=== PATIENT | female | born 1990 | race Caucasian/White ===

== ENCOUNTER 2022-09-30 19:00 | Observation (INO) | payer OTHER ==
[2022-09-30] MEDS ORDERED: Metoclopramide HCl 10 MG/2 ML VIAL ONE (20:11)
[2022-09-30] MEDS ORDERED: diphenhydrAMINE 50 MG/ML VIAL ONE (20:11)
[2022-09-30] MEDS ORDERED: Magnesium 2 GM/50 ML BAG (IN WATER) ONE (20:48)
[2022-09-30] MEDS ORDERED: methylPREDNISolone Sod Succ/PF 125 MG/2 ML VIAL ONE (20:48)
[2022-09-30 21:59] LABS: #Eosinphils 0.1 thou/uL (0.0-0.7); #Monocytes 0.2 thou/uL (0.11-0.59); #Neutrophils 2.8 thou/uL (1.40-6.50); %Eosinophils 1.4 % (0.0-10.0); %Lymphocytes 30.8 % (21.0-51.0); %Neutrophils 62.6 % (42.0-75.0); Hemoglobin 12.4 g/dL (12.0-16.0); Mean Corpuscular HGB CONC 34.3 g/dL (32.0-36.0); Mean Corpuscular Hemoglobin 31.2 pg (27.0-31.0); Mean Corpuscular Volume 91.2 fl (78.0-98.0); Mean Platelet Volume 11.2 fL (7.4-10.4); Platelet Count 156 10x3/uL (130-400); RBC Distribution Width 11.7 % (11.5-14.5); Red Blood Cell (RBC) Count 3.97 mill/uL (4.20-5.40); White Blood Cell (WBC) Count 4.4 10x3/uL (4.8-10.8)
[2022-09-30 22:20] LABS: ALT (SGPT) Less than 7 U/L (8-55); AST (SGOT) 9 U/L (5-34); Albumin 3.7 g/dL (3.5-5.0); Alkaline Phosphatase 60 U/L (40-110); Anion Gap 9 mmol/L (10-20); BUN (Urea Nitrogen) 4 mg/dL (7.0-18.7); Bilirubin, Total 0.5 mg/dL (0.2-1.2); Calc. Creatinine Clearance 0 mL/min (70-130); Calcium 8.5 mg/dL (7.8-10.44); Carbon Dioxide 25 mmol/L (22-29); Chloride 108 mmol/L (98-107); Estimated GFR 123; Globulin 2.5 g/dL (2.4-3.5); Glucose 97 mg/dL (70-105); Potassium 3.1 mmol/L (3.5-5.1); Protein, Total 6.2 g/dL (6.0-8.3); Sodium 139 mmol/L (136-145)
[2022-09-30] MEDS ORDERED: Potassium Chloride 20 MEQ TAB ONE (23:24)
[2022-10-01 01:53] LABS: Troponin I Less than 0.010 ng/mL (< 0.028)
== END 2022-10-01 03:11 | disposition home or self-care (01) ==
LOC: ERS 19:00 → ERHOLD 10-01 00:55
PROVIDERS: ADMIT Internal Medicine; ATTEND Internal Medicine
DX: R35.0 Frequency of micturition (principal); Z53.9 Procedure and treatment not carried out, unspecified reason
CPT/HCPCS: 36415; 71045; 80053; 84484; 85025; 85379; 93005; 96372; 96374; 96375; G0378; J1200; J1650; J2765; J2930; J3475